=== PATIENT | male | born 1990 | race Caucasian/White ===

== ENCOUNTER 2023-03-19 04:41 | Emergency (ER) | payer BC, SELFPAY | END 2023-03-19 05:42 | disposition home or self-care (01) | LOC: CSHERS 04:41 | DX: S83.92XA Sprain of unspecified site of left knee, initial encounter (principal); S60.221A Contusion of right hand, initial encounter; I10 Essential (primary) hypertension; Y04.0XXA Assault by unarmed brawl or fight, initial encounter; Z79.899 Other long term (current) drug therapy ==